=== PATIENT | female | born 1995 | race Caucasian/White ===

== ENCOUNTER 2018-11-29 02:50 | Emergency (ER) | payer SELFPAY ==
[2018-11-29] MEDS ORDERED: methylPREDNISolone SODIUM SUC 125 MG/2 ML VIAL IM ONE (03:18)
[2018-11-29] MEDS ORDERED: EPINEPHrine HCL AMP 1 MG/ML AMP IM ONE (03:18)
--- NOTE | 2018-11-29 03:18 | ED.PDOC ---
History of Present Illness - General Chief Complaint: Dental/Mouth Stated Complaint: swelling in mouth, Time Seen by Provider: 11/29/18 03:09 Source: patient Exam Limitations: no limitations - History of Present Illness Initial Comments: Shirley Tabares 23 y/o female stated that she went to her dentist today due to dental pain from dental abscess and was prescribed antibiotics Clindamycin 300 mg orally and had taken 3 doses of the medication today but after taking her 3rd dose at 10 pm tonight then about 1-2 hours ago felt throat had been trying to close and with sob,no drooling noted called up Md advised to come to ER Timing/Duration: this evening Severity: moderate EENT Location: mouth Prearrival Treatment: no prearrival treatment Presenting Symptoms: see hpi Improving Factors: nothing Worsening Factors: other - see hpi Associated Symptoms: tooth pain Allergies/Adverse Reactions: Allergies Cephalexin [From Keflex] Allergy (Verified 04/26/16 15:43) scorpion Adverse Reaction (Uncoded 04/26/16 15:43) Home Medications: Ambulatory Orders Azithromycin [Zithromax Z-Quentin] 1 ea PO DAILY #1 pack 09/12/15 Benzonatate Perles [Tessalon Perles] 100 mg PO TID #30 cap 09/12/15 Budesonide Inhaler [Pulmicort Flexhaler] 180 mcg IN BID #1 inh 09/12/15 guaiFENesin/DEXTROMETH SYRUP [Robitussin Dm] 10 ml PO Q6H #240 ud 09/12/15 Albuterol Inhaler [Ventolin Hfa Inhaler] 1 puff INH Q6H PRN 09/15/15 Albuterol Sulfate Nebs [Proventil Nebs] 2.5 mg INH Q4H 09/15/15 Guaifenesin-Codeine [Cheratussin AC 100-10 mg/5Ml] 1 tsp PO Q6H PRN #1 bottle 09/15/15 predniSONE 20 mg PO QAM #5 tab 09/15/15 Acetaminophen W/ Codeine [Tylenol w/Codeine 300-30 mg] 1 tab PO Q4HR PRN #30 tab 04/26/16 Methocarbamol [Robaxin] 750 mg PO Q6H PRN #30 tab 04/26/16 Azithromycin [Zithromax Z-Quentin] 250 mg PO DAILY 6 Days #6 tab 11/29/18 metroNIDAZOLE [Flagyl] 500 mg PO Q8H 7 Days #21 tab 11/29/18 Review of Systems - Review of Systems Constitutional: States: no symptoms reported EENTM: States: see HPI, throat swelling Respiratory: States: no symptoms reported Cardiology: States: no symptoms reported Gastrointestinal/Abdominal: States: no symptoms reported Genitourinary: States: no symptoms reported Musculoskeletal: States: no symptoms reported Skin: States: no symptoms reported Neurological: States: no symptoms reported Past Medical History (General) - Patient Medical History Hx Seizures: No Hx Stroke: No Hx Dementia: No Hx Asthma: No Hx of COPD: No Hx Cardiac Disorders: No Hx Congestive Heart Failure: No Hx Pacemaker: No Hx Hypertension: No Hx Thyroid Disease: No Hx Diabetes: No Hx Gastroesophageal Reflux: No Hx Renal Disease: No Hx Cancer: No Hx of HIV: No Hx Hepatitis C: No Hx MRSA: No Surgical History: no surgical history - Vaccination History Hx Tetanus, Diphtheria Vaccination: No Hx Influenza Vaccination: No Hx Pneumococcal Vaccination: No Immunizations Up to Date: No - Social History Hx Tobacco Use: No Hx Alcohol Use: No Hx Substance Use: No Hx Substance Use Treatment: No Hx Depression: No Hx Physical Abuse: No Hx Emotional Abuse: No - Female History Patient is a Female of Child Bearing Age (10 -59 yrs old): Yes Hx Last Menstrual Period: 10/14/18 - patient on depo-provera Patient : No Family Medical History - Family History Mother Living Status: Still Living Hx Family Hypertension: Yes Physical Exam - Physical Exam General Appearance: Alert, Comfortable, No apparent distress Eye Exam: bilateral normal Ear Exam: bilateral ear: auricle normal, canal normal Nasal Exam: normal inspection Throat Exam: pharynx normal, dental tenderness - right lower molars, mandibular swelling - right jaw Neck: supple, normal inspection, trachea midline Cardiovascular/Respiratory: no M/R/G, normal peripheral pulses, normal breath sounds, no respiratory distress Neurologic: alert, oriented x 3 Skin Exam: normal color, warm/dry Progress - Progress Progress: 11/29/18 03:48 Vital Signs - 8 hr 11/29/18 03:00 Temperature 98.6 F Pulse Rate [ 115 H left] Respiratory 20 Rate Blood Pressure 141/94 [left] O2 Sat by Pulse 98 Oximetry 11/29/18 04:13 Patient stated felt better no longer having feeling of throat fullness Departure - Departure Clinical Impression: Dental abscess Allergic reaction caused by a drug Qualifiers: Encounter type: initial encounter Qualified Code(s): T78.40XA - Allergy, unspecified, initial encounter Time of Disposition: 04:15 Disposition: Discharge to Home or Self Care Condition: Fair Departure Forms: ED Discharge - Pt. Copy, Patient Portal Self Enrollment Instructions: Tooth Abscess (DC) Referrals: Santana Huerta MD [Primary Care Provider] - 1-2 Weeks Prescriptions: Azithromycin [Zithromax Z-Quentin] 250 mg PO DAILY 6 Days #6 tab metroNIDAZOLE [Flagyl] 500 mg PO Q8H 7 Days #21 tab Home Medications: Ambulatory Orders Azithromycin [Zithromax Z-Quentin] 1 ea PO DAILY #1 pack 09/12/15 Benzonatate Perles [Tessalon Perles] 100 mg PO TID #30 cap 09/12/15 Budesonide Inhaler [Pulmicort Flexhaler] 180 mcg IN BID #1 inh 09/12/15 guaiFENesin/DEXTROMETH SYRUP [Robitussin Dm] 10 ml PO Q6H #240 ud 09/12/15 Albuterol Inhaler [Ventolin Hfa Inhaler] 1 puff INH Q6H PRN 09/15/15 Albuterol Sulfate Nebs [Proventil Nebs] 2.5 mg INH Q4H 09/15/15 Guaifenesin-Codeine [Cheratussin AC 100-10 mg/5Ml] 1 tsp PO Q6H PRN #1 bottle 09/15/15 predniSONE 20 mg PO QAM #5 tab 09/15/15 Acetaminophen W/ Codeine [Tylenol w/Codeine 300-30 mg] 1 tab PO Q4HR PRN #30 tab 04/26/16 Methocarbamol [Robaxin] 750 mg PO Q6H PRN #30 tab 04/26/16 Azithromycin [Zithromax Z-Quentin] 250 mg PO DAILY 6 Days #6 tab 11/29/18 metroNIDAZOLE [Flagyl] 500 mg PO Q8H 7 Days #21 tab 11/29/18 Additional Instructions: DISCONTINUE CLINDAMYCIN;Get new antibiotics prescription at [facility];Return to ER as needed;Keep dental appointment as scheduled 01 Dec 2018
[2018-11-29] MEDS ORDERED: diphenhydrAMINE HCL 50 MG/ML VIAL IM ONE (03:19)
[2018-11-29] MEDS ORDERED: diphenhydrAMINE HCL 25 MG CAP PO ONE (04:13)
[2018-11-29 04:37] VITALS: BP 125/89; TEMP 97.9; O2SAT 97
== END 2018-11-29 04:36 | disposition home or self-care (01) ==
LOC: ER 02:50
DX: T36.8X5A Adverse effect of other systemic antibiotics, initial encounter (principal); R22.0 Localized swelling, mass and lump, head; K04.7 Periapical abscess without sinus; Z88.1 Allergy status to other antibiotic agents
CPT/HCPCS: J1200; J2930; Q0163